=== PATIENT | female | born 1955 | race Caucasian/White ===

== ENCOUNTER → 2016-09-17 | Outpatient (CLI) | payer OTHER, MEDICAID ==
[~2016-09-17] MED LIST: FUROSEMIDE 20 MG/2 ML VIAL ONE; MIDAZOLAM 2 MG/2 ML VIAL ONE; PROPOFOL 200 MG/20 ML VIAL ONE; fentaNYL 100 MCG/2 ML INJ ONE
--- NOTE | 2016-09-17 17:06 | US ---
Bilateral Lower Extremity Ultrasound and Venous Duplex Doppler Study History: Elevated d-dimer, on anticoagulation for previous DVT. Comparison: None available. Technique: High-frequency transducer was used for imaging and Doppler study of the veins of the righ t and left lower extremities. Pulsed Doppler and color Doppler were utilized, along with various ma neuvers to assess flow in the veins. Findings: Right: The deep veins of the right lower extremity are normally compressible between the groin and th e upper calf. They have normal Doppler waveforms within them. No venous thrombosis is identified. Th ere is a 2.3 x 0.8 x 0.3 cm fluid collection anterior to the right patella. Left: The deep veins of the left lower extremity are normally compressible between the groin and the upper calf. They have normal Doppler waveforms within them. No venous thrombus is identified. Impression: 1. No evidence of deep vein thrombosis in the lower extremities. 2. Tiny right prepatellar fluid collection, possibly related to prepatellar bursitis. Findings discussed with Priti Chong today at 1702 hours.
== END ==
LOC: FIMAGING 16:08
PROVIDERS: ATTEND Family Medicine
DX: R79.89 Other specified abnormal findings of blood chemistry (principal); Z79.01 Long term (current) use of anticoagulants; Z86.718 Personal history of other venous thrombosis and embolism
CPT/HCPCS: J2250; J2704; J3010

== ENCOUNTER 2016-09-18 08:30 | Day surgery (SDC) | payer OTHER, MEDICAID ==
[2016-09-18] MEDS ORDERED: LIDOCAINE 1% 2 ML INJ ID PRN (09:31)
[2016-09-18 09:44] LABS: INR 1.14 (0.83-1.16); PROTIME(PATIENT) 14.5 SEC (12.0-15.0)
[2016-09-18 09:53] LABS: ANION GAP 7 mEq/L (8-16); CALCIUM 8.9 mg/dL (8.5-10.4); CARBON DIOXIDE 28 mEq/l (22-31); CHLORIDE 101 mEq/L (97-110); CREATININE 0.6 mg/dL (0.6-1.0); GLOMERULAR FILTRATION RATE > 60; GLUCOSE 93 mg/dL (70-100); POTASSIUM 3.5 mEq/L (3.5-5.2); SODIUM 136 mEq/L (134-144)
[2016-09-18] MEDS ORDERED: LR 1,000 ML IV SCH (10:00)
[2016-09-18] MEDS ORDERED: PROMETHAZINE HCL 25 MG/ML INJ IV ONE (10:00)
--- NOTE | 2016-09-20 21:29 | GPN ---
[f rep st] PROCEDURE NOTE DATE OF PROCEDURE: 09/18/2016 PROCEDURE: Esophagogastroduodenoscopy with biopsy. INDICATION: The patient is a 61-year-old female with a history of Goss esophagus who presents with complaints of nausea, as well as surveillance of her Goss esophagus. CONSENT: Risks, benefits, and alternatives of the procedure were discussed in great detail with the patient. Risk of infection, bleeding, perforation, and sedation were discussed. All questions were answered. Informed consent was obtained. MEDICATIONS: Propofol. Please see Anesthesiology record for details. ESTIMATED BLOOD LOSS: Insignificant. ESOPHAGOGASTRODUODENOSCOPY EXAMINATION: The Olympus upper endoscope was introduced into the mouth and advanced to the esophagus. The proximal and mid esophagus were normal in appearance. The patient had an irregular Z line. A biopsy was taken. The stomach was entered and closely examined, including retroflexed views of the angularis, cardia, and fundus. The patient was noted to have a small hiatal hernia. The mucosa in the antrum and body was erythematous in a patchy distribution and biopsies were taken. The duodenum and second portion of the duodenum were normal in appearance. IMPRESSION/RECOMMENDATIONS 1. Irregular Z-line status post biopsy. 2. Gastritis status post biopsy. 3. Await biopsy results. 4. Hiatal hernia. 5. If still having nausea, consider full dose PPI BID x 6 weeks than QD /[id number]/MODL MTDD
== END 2016-09-18 14:20 | disposition home or self-care (01) ==
LOC: FSGY 08:30
PROVIDERS: ATTEND Internal Medicine Gastroenterology
PROC: 0DB68ZX Excision of Stomach, Via Natural or Artificial Opening Endoscopic, Diagnostic (ICD-10-PCS; 2016-09-18)
PROC: 0DB38ZX Excision of Lower Esophagus, Via Natural or Artificial Opening Endoscopic, Diagnostic (ICD-10-PCS; principal; 2016-09-18 10:30)
DX: K29.70 Gastritis, unspecified, without bleeding (principal); K22.9 Disease of esophagus, unspecified; Z87.19 Personal history of other diseases of the digestive system; R12 Heartburn; R11.0 Nausea; K44.9 Diaphragmatic hernia without obstruction or gangrene; G89.29 Other chronic pain; I25.10 Atherosclerotic heart disease of native coronary artery without angina pectoris; J45.909 Unspecified asthma, uncomplicated; Z79.01 Long term (current) use of anticoagulants; Z86.718 Personal history of other venous thrombosis and embolism; Z95.1 Presence of aortocoronary bypass graft

== ENCOUNTER 2016-11-09 14:41 | Emergency (ER) | payer OTHER, MEDICAID ==
--- NOTE | 2016-11-09 15:47 | CPEKG ---
Heart Rate: 66 RR Interval: 909 P-R Interval: 176 QRSD Interval: 92 QT Interval: 472 QTC Interval: 495 P [place]: 74 QRS [place]: 78 T Wave [place]: 81 EKG Severity - BORDERLINE ECG - EKG Impression: SINUS RHYTHM EKG Impression: PROBABLE LEFT ATRIAL ABNORMALITY EKG Impression: BORDERLINE PROLONGED QT INTERVAL EKG Impression: SIMILAR TO PREVIOUS Electronically Signed By: Jacob Martinez 09-Nov-2016 16:03:57
--- NOTE | 2016-11-09 16:02 | EDPHY ---
H & P Stated Complaint: Passed out Wednesday;has blood in urine;wants lab work done Time Seen by Provider: 11/09/16 15:44 HPI/ROS: CHIEF COMPLAINT: hematuria HISTORY OF PRESENT ILLNESS: Patient is a 61-year-old female who comes to the emergency department complaining of hematuria after a syncopal event on Wednesday. She states that she fainted while walking and fell onto her walker. She has some bruising over her left lower ribs. She has had mild hematuria for the last day. She has a history of bilateral hilar plastic from a defect as well as a benign hemangioma. She also has a history of CABG and mitral valve replacement and is on warfarin. Her INR was checked today and was 3.5. Also history of CHF. She denies chest pain or shortness of breath. She does have chronic back pain and had previously been taking large amounts of fentanyl until the pain clinic closed. Now she is taking 4 mg of Dilaudid 3 times a day. She denies having any chest pain or palpitations during the syncopal event. She denies headache. She does think that she hit her head however. She denies neck pain. She was seen by her call the office today who recommended she come to the ER for evaluation of the trauma. REVIEW OF SYSTEMS: Constitutional: denies: chills, fever, recent illness, recent injury EENTM: denies: blurred vision, double vision, nose congestion Respiratory: denies: cough, shortness of breath Cardiac: denies: chest pain, irregular heart rate, lightheadedness, palpitations Gastrointestinal/Abdominal: denies: abdominal pain, diarrhea, nausea, vomiting, blood streaked stools Genitourinary: d see HPI Musculoskeletal: denies: joint pain, muscle pain Skin: See HPI Neurological: denies: headache, numbness, paresthesia, tingling, dizziness, weakness Hematologic/Lymphatic: denies: blood clots, easy bleeding, easy bruising Immunologic/allergic: denies: HIV/AIDS, transplant EXAM: GENERAL: Well-appearing, well-nourished and in no acute distress. HEAD: Atraumatic, normocephalic. EYES: Pupils equal round and reactive to light, extraocular movements intact, sclera anicteric, conjunctiva are normal. ENT: TMs normal, nares patent, oropharynx clear without exudates. Moist mucous membranes. NECK: Normal range of motion, supple without lymphadenopathy or JVD. LUNGS: Breath sounds clear to auscultation bilaterally and equal. No wheezes rales or rhonchi. HEART: Regular rate and rhythm without murmurs, rubs or gallops. ABDOMEN: Soft, nontender, normoactive bowel sounds. No guarding, no rebound. No masses appreciated. BACK: No CVA tenderness, no spinal tenderness, step-offs or deformities EXTREMITIES: Normal range of motion, no pitting or edema. No clubbing or cyanosis. NEUROLOGICAL: Cranial nerves II through XII grossly intact. Normal speech, normal gait. 5/5 strength, normal movement in all extremities, normal sensation PSYCH: Normal mood, normal affect. SKIN: Mild bruising to Left upper quadrant, no tenderness. Source: Patient Exam Limitations: No limitations - Personal History Current Tetanus Diphtheria and Acellular Pertussis (TDAP): Yes Tetanus Vaccine Date: 2014 - Medical/Surgical History Hx Asthma: Yes Hx Chronic Respiratory Disease: No Hx Diabetes: No Hx Cardiac Disease: Yes Hx Renal Disease: Yes Hx Cirrhosis: No Hx Alcoholism: No Hx HIV/AIDS: No Hx Splenectomy or Spleen Trauma: No Other PMH: pmh- kidney problems, sleep apnea, falls. psh- x3 kidney surgery ( x1 R, X2 L), spinal surgery, x2 R hip, x1 total R hip revision, L4-L5 DISC REPLACED, HYSTERECTOMY. CABG x2v and mitral valve replacement, R HIP DISLOCATION - Family History Significant Family History: No pertinent family hx - Social History Smoking Status: Never smoked Alcohol Use: Sober Drug Use: None Constitutional: Initial Vital Signs Temperature (C) 36.8 C 11/09/16 15:03 Heart Rate 80 11/09/16 15:03 Respiratory Rate 18 11/09/16 15:03 Blood Pressure 100/75 11/09/16 15:03 O2 Sat (%) 97 11/09/16 15:03 O2 Delivery Mode Room Air Allergies/Adverse Reactions: adhesive Allergy (Intermediate, Verified 11/09/16 15:03) Other-Enter Comments atorvastatin calcium [From Lipitor] Allergy (Verified 11/09/16 15:03) rosuvastatin calcium [From Crestor] Allergy (Verified 11/09/16 15:03) tegaderm Allergy (Uncoded 03/05/16 08:12) Home Medications: Medication Instructions Recorded Albuterol [Proventil Inhaler HFA 1 - 2 puffs IH Q6H PRN 02/24/16 (*)] Aspirin EC [Aspirin EC 81 mg (*)] 162 mg PO HS 02/24/16 Diazepam [Valium 5 MG (*)] 10 mg PO BID 02/24/16 Escitalopram Oxalate [Lexapro] 20 mg PO HS 02/24/16 Furosemide [Lasix 40 MG (*)] 80 mg PO DAILY 02/24/16 Omeprazole [Prilosec 20 mg] 40 mg PO BID 02/24/16 Potassium Chloride [Klor-Con 10] 40 meq PO DAILY 02/24/16 Promethazine HCl [Phenergan 25mg 25 mg PO TID PRN 02/24/16 (*)] Spironolactone [Aldactone 25 MG 25 mg PO DAILY06 02/24/16 (*)] Warfarin Sodium [Coumadin 1MG (*)] 3 mg PO WE@16 02/24/16 Warfarin Sodium [Coumadin 1MG (*)] 6 mg PO SUMOTUTHFRSA@16 02/24/16 fentaNYL [Duragesic 50 MCG Patch 100 mcg TD Q48H 02/24/16 (*)] Lovenox BID 09/17/16 Acetaminophen Extra Strength 09/18/16 GABAPENTIN 300 mg PO HS 09/18/16 METAXALONE 2.5 mg PO DAILY 09/18/16 Marijuana 09/18/16 Morphine Sulfate 30 mg PO Q4HRS PRN 09/18/16 Symbicort 160-4.5 Mcg Inh (*) 09/18/16 Medical Decision Making - Diagnostics EKG Interpretation: An EKG obtained and was read and documented in trace view. Please see trace view for full reading and report. Sinus rhythm, QT prolongation, anterior T- wave inversions, similar to previous Imaging: Results: CT scan of the head was obtained. The results of the study are negative. The study was read by Dr. Henrique Armendariz. I viewed the images myself on the PACS system. ED Course/Re-evaluation: 5:20 p.m. we discussed the patient's lab and imaging results. She is relieved. She is eager to go home. She declines further workup, testing or observation. Her daughter will take her home. Differential Diagnosis: Partial list of the Differential diagnosis considered include but were not limited to; splenic injury, kidney injury, arrhythmia, acute coronary disease, rib fracture, syncope, head injury and although unlikely based on the history and physical exam, I also considered electrolyte abnormality, infection, non accidental trauma. I discussed these differential diagnoses and the plan with the patient as well as the usual and expected course. The patient understands that the diagnosis is provisional and that in medicine we are not always correct and that further workup is often warranted. Usual and customary warnings were given. All of the patient's questions were answered. The patient was instructed to return to the emergency department should the symptoms at all worsen or return, otherwise to followup with the physician as we discussed. - Data Points Laboratory Results: Laboratory Results 11/09/16 15:36 11/09/16 15:36 11/09/16 11/09/16 11/09/16 17:00 15:36 15:36 WBC RBC Hgb Hct MCV MCH MCHC RDW Plt Count MPV Neut % (Auto) Lymph % (Auto) [place] % (Auto) Eos % (Auto) Baso % (Auto) Nucleat RBC Rel Count Absolute Neuts (auto) Absolute Lymphs (auto) Absolute Monos (auto) Absolute Eos (auto) Absolute Basos (auto) Absolute Nucleated RBC Immature Gran % Immature Gran # PT 30.5 SEC H SEC (12.0-15.0) INR 2.88 H (0.83-1.16) APTT 39.9 SEC H SEC (23.0-38.0) Sodium 135 mEq/L mEq/L (134-144) Potassium 3.0 mEq/L L mEq/L (3.5-5.2) Chloride 98 mEq/L mEq/L (97-110) Carbon Dioxide 27 mEq/l mEq/l (22-31) Anion Gap 10 mEq/L mEq/L (8-16) BUN 14 mg/dL mg/dL (7-23) Creatinine 0.7 mg/dL mg/dL (0.6-1.0) Estimated GFR > 60 Glucose 121 mg/dL H mg/dL (70-100) Calcium 9.3 mg/dL mg/dL (8.5-10.4) Total Bilirubin 0.7 mg/dL mg/dL (0.1-1.4) Conjugated Bilirubin 0.5 mg/dL mg/dL (0.0-0.5) Unconjugated Bilirubin 0.2 mg/dL mg/dL (0.0-1.1) AST 28 IU/L IU/L (14-46) ALT 17 IU/L IU/L (9-52) Alkaline Phosphatase 68 IU/L IU/L (38-126) Troponin I < 0.012 ng/mL ng/mL (0-0.034) Total Protein 7.0 g/dL g/dL (6.3-8.2) Albumin 4.2 g/dL g/dL (3.5-5.0) Lipase 53.0 IU/L IU/L (23-300) Urine Color YELLOW Urine Appearance CLEAR Urine pH 7.0 (5.0-7.5) Ur Specific [place] 1.019 (1.002-1.030) Urine Protein NEGATIVE (NEGATIVE) Urine Ketones NEGATIVE (NEGATIVE) Urine Blood NEGATIVE (NEGATIVE) Urine Nitrate NEGATIVE (NEGATIVE) Urine Bilirubin NEGATIVE (NEGATIVE) Urine Urobilinogen NEGATIVE EU EU (0.2-1.0) Ur Leukocyte Esterase NEGATIVE (NEGATIVE) Urine RBC 5-10 /hpf H /hpf (0-3) Urine WBC 1-3 /hpf /hpf (0-3) Ur Epithelial Cells NONE SEEN /lpf /lpf (NONE-1+) Urine Glucose NEGATIVE (NEGATIVE) 11/09/16 15:36 WBC 6.18 10^3/uL 10^3/uL (3.80-9.50) RBC 4.87 10^6/uL 10^6/uL (4.18-5.33) Hgb 15.5 g/dL g/dL (12.6-16.3) Hct 44.4 % % (38.0-47.0) MCV 91.2 fL fL (81.5-99.8) MCH 31.8 pg pg (27.9-34.1) MCHC 34.9 g/dL g/dL (32.4-36.7) RDW 11.9 % % (11.5-15.2) Plt Count 246 10^3/uL 10^3/uL (150-400) MPV 10.6 fL fL (8.7-11.7) Neut % (Auto) 65.5 % % (39.3-74.2) Lymph % (Auto) 24.6 % % (15.0-45.0) [place] % (Auto) 5.7 % % (4.5-13.0) Eos % (Auto) 3.2 % % (0.6-7.6) Baso % (Auto) 0.8 % % (0.3-1.7) Nucleat RBC Rel Count 0.0 % % (0.0-0.2) Absolute Neuts (auto) 4.05 10^3/uL 10^3/uL (1.70-6.50) Absolute Lymphs (auto) 1.52 10^3/uL 10^3/uL (1.00-3.00) Absolute Monos (auto) 0.35 10^3/uL 10^3/uL (0.30-0.80) Absolute Eos (auto) 0.20 10^3/uL 10^3/uL (0.03-0.40) Absolute Basos (auto) 0.05 10^3/uL 10^3/uL (0.02-0.10) Absolute Nucleated RBC 0.00 10^3/uL 10^3/uL (0-0.01) Immature Gran % 0.2 % % (0.0-1.1) Immature Gran # 0.01 10^3/uL 10^3/uL (0.00-0.10) PT INR APTT Sodium Potassium Chloride Carbon Dioxide Anion Gap BUN Creatinine Estimated GFR Glucose Calcium Total Bilirubin Conjugated Bilirubin Unconjugated Bilirubin AST ALT Alkaline Phosphatase Troponin I Total Protein Albumin Lipase Urine Color Urine Appearance Urine pH Ur Specific [place] Urine Protein Urine Ketones Urine Blood Urine Nitrate Urine Bilirubin Urine Urobilinogen Ur Leukocyte Esterase Urine RBC Urine WBC Ur Epithelial Cells Urine Glucose Medications Given: Discontinued Medications Potassium Chloride (Potassium Chloride Oral Liquid) 20 meq PO EDNOW ONE Stop: 11/09/16 16:52 Last Admin: 11/09/16 17:08 Dose: 20 meq Departure - Departure Disposition: Home, Routine, Self-Care Clinical Impression: Syncope and collapse Contusion Qualifiers: Encounter type: initial encounter Contusion area: abdominal wall Qualified Code (s): S30.1XXA - Contusion of abdominal wall, initial encounter Condition: Fair Instructions: Syncope (ED), Contusion in Adults (ED) Referrals: Priti Chong MD [Primary Care Provider] - As per Instructions
[2016-11-09 16:10] LABS: % IMMATURE GRANULYOCYTES 0.2 % (0.0-1.1); ABSOLUTE IMMATURE GRANULOCYTES 0.01 10^3/uL (0.00-0.10); ADD DIFF? NO; ADD MORPH? NO; ADD SCAN? NO; ATYPICAL LYMPHOCYTE FLAG 10 (0-99); FRAGMENT RBC FLAG 0 (0-99); HEMATOCRIT 44.4 % (38.0-47.0); HEMOGLOBIN 15.5 g/dL (12.6-16.3); LEFT SHIFT FLG 0 (0-99); LIPEMIA HEMOLYSIS FLAG 90 (0-99); MEAN CELL HEMOGLOBIN 31.8 pg (27.9-34.1); MEAN CELL HEMOGLOBIN CONCENTR. 34.9 g/dL (32.4-36.7); MEAN CELL VOLUME 91.2 fL (81.5-99.8); MEAN PLATELET VOLUME 10.6 fL (8.7-11.7); PLATELET CLUMPS FLAG 50 (0-99); PLATELET COUNT 246 10^3/uL (150-400); RED BLOOD CELL COUNT 4.87 10^6/uL (4.18-5.33); RED CELL DISTRIBUTION WIDTH 11.9 % (11.5-15.2)
[2016-11-09 16:20] LABS: APTT 39.9 SEC (23.0-38.0); INR 2.88 (0.83-1.16); PROTIME(PATIENT) 30.5 SEC (12.0-15.0)
[2016-11-09 16:26] LABS: ALANINE AMINOTRANSFERASE 17 IU/L (9-52); ALBUMIN 4.2 g/dL (3.5-5.0); ALKALINE PHOSPHATASE 68 IU/L (38-126); ANION GAP 10 mEq/L (8-16); ASPARTATE AMINOTRANSFERASE 28 IU/L (14-46); BILIRUBIN,TOTAL 0.7 mg/dL (0.1-1.4); BILIRUBIN-CONJUGATED 0.5 mg/dL (0.0-0.5); BILIRUBIN-UNCONJUGATED 0.2 mg/dL (0.0-1.1); CALCIUM 9.3 mg/dL (8.5-10.4); CARBON DIOXIDE 27 mEq/l (22-31); CHLORIDE 98 mEq/L (97-110); CREATININE 0.7 mg/dL (0.6-1.0); GLOMERULAR FILTRATION RATE > 60; GLUCOSE 121 mg/dL (70-100); SODIUM 135 mEq/L (134-144)
[2016-11-09 16:37] LABS: TROPONIN I < 0.012 ng/mL (0-0.034)
[2016-11-09] MEDS ORDERED: IOPAMIDOL (ISOVUE-300) 100 ML BTL IV ONE (16:43)
[2016-11-09] MEDS: POTASSIUM CL 20 MEQ/15 ML UDCUP PO ONE (17:08)
[2016-11-09 17:28] LABS: COLOR YELLOW; LEUKOCYTE ESTERASE,URINE NEGATIVE (NEGATIVE); NITRITE,URINE NEGATIVE (NEGATIVE)
[2016-11-09 17:41] VITALS: BP 104/57; PULSE 65; RESP 16; TEMP 99; O2SAT 99
== END 2016-11-09 17:42 | disposition home or self-care (01) ==
DX: S30.1XXA Contusion of abdominal wall, initial encounter (principal); R55 Syncope and collapse; J45.909 Unspecified asthma, uncomplicated; I50.9 Heart failure, unspecified; Z79.01 Long term (current) use of anticoagulants; Z79.82 Long term (current) use of aspirin; Z95.1 Presence of aortocoronary bypass graft; X58.XXXA Exposure to other specified factors, initial encounter
CPT/HCPCS: 70450; 74177; 93005; 99285; Q9967

== ENCOUNTER → 2016-11-13 | Outpatient (CLI) | payer OTHER, MEDICAID | LOC: FIMAGING 14:36 | PROVIDERS: ATTEND Orthopaedic Surgery Adult Reconstructive Orthopaedic Surgery | DX: M94.261 Chondromalacia, right knee (principal); M25.461 Effusion, right knee; M71.21 Synovial cyst of popliteal space [Baker], right knee ==

== ENCOUNTER 2016-11-28 01:16 | Emergency (ER) | payer OTHER, MEDICAID ==
[2016-11-28 01:24] VITALS: BP 113/85; PULSE 104; RESP 16; TEMP 97.5; O2SAT 97
--- NOTE | 2016-11-28 01:58 | EDPHY ---
H & P Stated Complaint: Dr Holland's PA sent to be admitted for kidney failure; edema Time Seen by Provider: 11/28/16 01:32 HPI/ROS: Chief Complaint: Flank pain, leg pain, abnormal lab values HPI: 61-year-old woman with a history of chronic leg pain and chronic right flank pain with a history of congestive heart failure. Patient was seen yesterday at Dr. Bethea cardiology office and had blood work done at that time. They are concerned that she might have acute renal failure. She was called in the evening and told to present to the emergency department for significant lab abnormalities. She has a history of CHF and takes Lasix frequently she. She also has a history of chronic right-sided flank pain for which she has been worked up extensively in the past. In the past she has had worsening pain for the last several days which prompted her follow up with Cardiology. She denies any significant weight loss or weight gain. States that she is having worsening pain over the last 3 days because she is out of her pain medicines and her pain doctor is out of town. She is supposed to be getting a transdermal patch of a narcotic and has/antagonist but has been able to get this filled. Otherwise her chronic pain is unchanged from her usual. She is not certain why she was called in her with a lab abnormalities are this morning. She is scheduled for right knee surgery this week. Denies any fevers or chills. No nausea or vomiting. No dysuria. ROS: 10 point Review of Systems is negative except as noted in the HPI. PMH: Congestive heart failure, chronic right flank pain, chronic right leg pain , hypokalemia secondary to diuretic use Allergies: To atorvastatin, adhesive Social History: No smoking, no alcohol, no recreational drug use Family History: non-contributory Physical Exam: Gen: Awake, Alert, No Distress HEENT: Nose: no rhinorrhea Eyes: PERRLA, EOMI Mouth: Moist mucosa Neck: Supple, no JVD Chest: nontender, lungs clear to auscultation Heart: S1, S2 normal, no murmur Abd: Soft, non-tender, no guarding Back: no CVA tenderness, no midline tenderness Ext: no edema, non-tender Skin: no rash Neuro: CN II-XII intact, Sensation grossly intact, Strength 5/5 in bilateral upper and lower extremities - Personal History Current Tetanus/Diphtheria Vaccine: Yes Current Tetanus Diphtheria and Acellular Pertussis (TDAP): Yes Tetanus Vaccine Date: 2014 - Medical/Surgical History Hx Asthma: Yes Hx Chronic Respiratory Disease: No Hx Diabetes: No Hx Cardiac Disease: Yes Hx Renal Disease: Yes Hx Cirrhosis: No Hx Alcoholism: No Hx HIV/AIDS: No Hx Splenectomy or Spleen Trauma: No Other PMH: pmh- kidney problems, sleep apnea, falls, perifpheral neuropathy. psh- x3 kidney surgery (x1 R, X2 L), spinal surgery, x2 R hip, x1 total R hip revision, L4-L5 DISC REPLACED, HYSTERECTOMY. CABG x2v and mitral valve replacement, R HIP DISLOCATION - Social History Smoking Status: Never smoked Constitutional: Initial Vital Signs Temperature (C) 36.4 C 11/28/16 01:17 Heart Rate 104 H 11/28/16 01:17 Respiratory Rate 16 11/28/16 01:17 Blood Pressure 113/85 H 11/28/16 01:17 O2 Sat (%) 97 11/28/16 01:17 O2 Delivery Mode Room Air Allergies/Adverse Reactions: adhesive Allergy (Intermediate, Verified 11/09/16 15:03) Other-Enter Comments atorvastatin calcium [From Lipitor] Allergy (Verified 11/09/16 15:03) rosuvastatin calcium [From Crestor] Allergy (Verified 11/09/16 15:03) tegaderm Allergy (Uncoded 03/05/16 08:12) Home Medications: Medication Instructions Recorded Albuterol [Proventil Inhaler HFA 1 - 2 puffs IH Q6H PRN 02/24/16 (*)] Aspirin EC [Aspirin EC 81 mg (*)] 162 mg PO HS 02/24/16 Diazepam [Valium 5 MG (*)] 10 mg PO BID 02/24/16 Escitalopram Oxalate [Lexapro] 20 mg PO HS 02/24/16 Furosemide [Lasix 40 MG (*)] 80 mg PO DAILY 02/24/16 Omeprazole [Prilosec 20 mg] 40 mg PO BID 02/24/16 Potassium Chloride [Klor-Con 10] 40 meq PO DAILY 02/24/16 Promethazine HCl [Phenergan 25mg 25 mg PO TID PRN 02/24/16 (*)] Spironolactone [Aldactone 25 MG 25 mg PO DAILY06 02/24/16 (*)] Warfarin Sodium [Coumadin 1MG (*)] 3 mg PO WE@16 02/24/16 Warfarin Sodium [Coumadin 1MG (*)] 6 mg PO EDILTENRIQUE@16 02/24/16 fentaNYL [Duragesic 50 MCG Patch 100 mcg TD Q48H 02/24/16 (*)] Lovenox BID 09/17/16 Acetaminophen Extra Strength 09/18/16 GABAPENTIN 300 mg PO HS 09/18/16 METAXALONE 2.5 mg PO DAILY 09/18/16 Marijuana 09/18/16 Morphine Sulfate 30 mg PO Q4HRS PRN 09/18/16 Symbicort 160-4.5 Mcg Inh (*) 09/18/16 Medical Decision Making ED Course/Re-evaluation: 7-year-old presenting being sent in from the cardiology PA for laboratory abnormalities. She is complaining of right-sided flank and right leg pain but these are not new complaints for her. She is out of her pain medications. I have reviewed her labs and then not certain what the concern is that prompted her presentation. She has a mild hypo kalemia which is chronic for her. She has very mild elevation in her calcium and phosphorus. Otherwise her blood tests are largely unremarkable and certainly I am not seeing anything that would warrant admission to the hospital at this time. She is taking her potassium supplements as prescribed. Otherwise she has no new acute physical exam findings or complaints. I have offered her analgesia here as she is awaiting pain medicine from her chronic pain doctor. There are no other acute processes at this time. Patient is discharged with instructions to follow up with her sports athletic trainer and primary care doctor early next week, return for any worsening. - Data Points Medications Given: Discontinued Medications Oxycodone/Acetaminophen (Percocet 5/325mg Prepack#4) 1 btl TAKEHOME EDNOW ONE Stop: 11/28/16 02:18 Last Admin: 11/28/16 02:29 Dose: 1 btl Departure - Departure Disposition: Home, Routine, Self-Care Clinical Impression: Flank pain, Hypokalemia Condition: Good Instructions: Oxycodone/Acetaminophen (By mouth), Hypokalemia (ED), Flank Pain (ED) Additional Instructions: Follow up with your sports athletic trainer and her primary care physician on Wednesday. Follow up with pain management doctor on Wednesday as well. Return to the emergency depart for fevers, nausea, vomiting, shortness of breath , or any other concerns. Referrals: Priti Chong MD [Primary Care Provider] - As per Instructions
[2016-11-28] MEDS ORDERED: OXYCODONE/APAP 5/325MG PREPACK#4 BTL TAKEHOME ONE (02:17)
== END 2016-11-28 02:33 | disposition home or self-care (01) ==
DX: R10.9 Unspecified abdominal pain (principal); E87.6 Hypokalemia; J45.909 Unspecified asthma, uncomplicated; I50.9 Heart failure, unspecified; Z79.82 Long term (current) use of aspirin; Z79.01 Long term (current) use of anticoagulants; Z95.1 Presence of aortocoronary bypass graft

== ENCOUNTER → 2016-12-02 | Outpatient (CLI) | payer OTHER, MEDICAID | LOC: BHFA 16:00 | PROVIDERS: ATTEND Internal Medicine Interventional Cardiology | DX: I25.10 Atherosclerotic heart disease of native coronary artery without angina pectoris (principal) ==

== ENCOUNTER → 2017-01-08 | Outpatient (CLI) | payer OTHER, MEDICAID | LOC: BHFA 09:45 | PROVIDERS: ATTEND Internal Medicine Cardiovascular Disease | DX: R06.02 Shortness of breath (principal); R60.9 Edema, unspecified; G89.29 Other chronic pain; Z95.2 Presence of prosthetic heart valve ==